=== PATIENT | male | born 1965 | race Caucasian/White ===

== ENCOUNTER 2021-07-10 11:14 | Emergency (ER) | payer OTHER, SELFPAY ==
--- NOTE | ~2021-07-10 | XR_ITS ---
EXAMINATION: XR finger 1st RT min 2V INDICATION: Right first finger pain TECHNIQUE: Three views of the right first finger are obtained. 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 There is no fracture , dislocation, or subluxation. The soft tissues are unremarkable. IMPRESSION: 1. No acute osseous abnormality. Reviewed, dictated and finalized at location A.
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
[2021-07-10 11:25] VITALS: BP 112/70; PULSE 85; RESP 18; TEMP 36.9; O2SAT 98
--- NOTE | 2021-07-10 11:39 | PC.NURSE ---
PT DECLINED ICE FOR COMFORT
== END 2021-07-10 12:05 | disposition home or self-care (01) ==
PROVIDERS: Emergency Provider Nurse Practitioner Family
DX: S63.601A Unspecified sprain of right thumb, initial encounter (principal); X58.XXXA Exposure to other specified factors, initial encounter; Z86.16 Personal history of COVID-19
CPT/HCPCS: 73140; 99213; G0463